=== PATIENT | male | born 1955 | race Caucasian/White ===

== ENCOUNTER 2019-03-21 10:31 | Day surgery (SDC) | payer BC ==
[~2019-03-21] VITALS: Ht 182.9 cm; Wt 90.9 kg
[2019-03-21] MEDS ORDERED: SODIUM CHLORIDE 0.9% 1,000 ML IV SCH ×2 (11:02→12:48)
[2019-03-21 11:04] VITALS: BP 121/77
[2019-03-21] MEDS ORDERED: CARV12.52 PO (11:13)
[2019-03-21] MEDS ORDERED: APIX5TAB PO (11:13)
[2019-03-21] MEDS ORDERED: FURO-93 PO (11:13)
[2019-03-21] MEDS ORDERED: LISI-167 PO (11:13)
[2019-03-21] MEDS ORDERED: LIDOCAINE 2%, 20ML ONE (11:27)
[2019-03-21] MEDS ORDERED: MIDAZOLAM 1 MG/ML, 5ML ONE (11:27)
[2019-03-21] MEDS ORDERED: FENTANYL PF 100 MCG/2ML ONE (11:27)
[2019-03-21] MEDS ORDERED: DIPHENHYDRAMINE 50 MG/ML, 1ML ONE (11:27)
[2019-03-21] MEDS ORDERED: VERAPAMIL 2.5 MG/ML, 2ML ONE (11:27)
[2019-03-21] MEDS ORDERED: BIVALIRUDIN 250 MG ONE ×2 (11:27→11:30)
[2019-03-21] MEDS ORDERED: HEPARIN 1,000 UNITS/ML, 10ML ONE (11:27)
[2019-03-21] MEDS ORDERED: NITROGLYCERIN 5 MG/ML, 10ML ONE (11:27)
[2019-03-21] MEDS ORDERED: TICAGRELOR 90 MG TABLET ONE (11:27)
== END 2019-03-21 15:28 | disposition home or self-care (01) ==
LOC: CACL 10:31
PROVIDERS: ATTEND Internal Medicine Cardiovascular Disease
DX: R07.89 Other chest pain (principal); I50.23 Acute on chronic systolic (congestive) heart failure; Z88.8 Allergy status to other drugs, medicaments and biological substances
CPT/HCPCS: 93458; 99156; C1769; C1894; J0583; J1200; J1644; J2250; J3010; Q9967

== ENCOUNTER → 2020-11-07 | Outpatient (CLI) | payer BC ==
[~2020-11-07] MED LIST: APIX5TAB PO; CARV12.52 PO; FURO-93 PO; LISI-167 PO
== END | disposition home or self-care (01) ==
LOC: CFH 12:32
PROVIDERS: ATTEND Internal Medicine Cardiovascular Disease
DX: I51.7 Cardiomegaly (principal); I42.9 Cardiomyopathy, unspecified
CPT/HCPCS: 93306